=== PATIENT | female | born 1950 | race Caucasian/White ===

== ENCOUNTER 2017-01-01 13:02 | Emergency (ER) | payer OTHER ==
[2017-01-01] MEDS ORDERED: NS 0.9% 1000 ML* 1,000 ML IV ONE (13:04)
[2017-01-01] MEDS ORDERED: Dextrose 50% Syringe 50 ML* 25 GM/50 ML SYRINGE IV PUSH ONE (13:14)
[2017-01-01] MEDS ORDERED: Dextrose 50% Syringe 50 ML* 25 GM/50 ML SYRINGE ONE (13:15)
--- NOTE | 2017-01-01 13:29 | RAD ---
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 Comparison: No relevant prior exams available on the [facility] for comparison. Technique: Noncontrast CT vertex of skull through foramen magnum. Report: The sulci, ventricles, and basal cisterns are normal for age. Huber matter white matter differentiation is preserved without evidence for edema. No intra or extra axial hemorrhage, mass, or fluid collection detected. Unremarkable visualized orbital contents. Unremarkable calvarium and skull base. Unremarkable scalp. The visualized paranasal sinuses and mastoid air spaces are clear. IMPRESSION: Negative for intracranial hemorrhage or CT evidence for other acute intracranial process. Negative exam. Results discussed with Dr. Bear 01/01/2017 1:26 PM EDT
[2017-01-01 13:33] LABS: Hematocrit 34 % (35-47); Mean Corpuscular HGB Conc 33 g/dl (31-36); Mean Corpuscular Hemoglobin 27 pg (27-31); Mean Corpuscular Volume 81 fL (80-97); Mean Platelet Volume 7 um3 (7.4-10.4); Red Blood Count 4.16 10^6/ul (4.0-5.4); Red Cell Distribution Width 15 % (10.5-15)
[2017-01-01 13:45] LABS: Albumin 3.9 g/dL (3.2-5.2); BUN/Creatinine Ratio 20.8 (8-20); Calcium 9.2 mg/dL (8.6-10.3); EGFR African American 97.1 (>60); EGFR Non-African American 75.5 (>60); Globulin 3.2 g/dL (2-4); HDL Cholesterol 42.6 mg/dL; Potassium 3.7 mmol/L (3.5-5.0); Total Bilirubin 0.3 mg/dL (0.2-1.0); Total Protein 7.1 g/dL (6.4-8.9)
[2017-01-01] MEDS ORDERED: diPHENhydraMINE IV* 50 MG in NS 0.9% 50 ML* 50 ML IVPB ONE (13:57)
[2017-01-01] MEDS ORDERED: methylPREDNISolone 125 MG* 2 ML VIAL IV ONE (13:57)
[2017-01-01] MEDS ORDERED: Famotidine IV* 10 MG/ML 2 ML (20 mg) IV SLOW PU ONE (13:57)
[2017-01-01 13:59] LABS: Urine Bilirubin Negative (Negative); Urine Glucose Negative (Negative); Urine Nitrite Negative (Negative)
[2017-01-01] MEDS ORDERED: diPHENhydraMINE IV* 50 MG/ML 1 ml VIAL (BENADRYL) SLOW PUSH ONE (13:59)
[2017-01-01] MEDS ORDERED: D5W 1/2 NS KCl 20 Meq 1000 ML* 1,000 ML IV SCH (14:00)
--- NOTE | 2017-01-01 14:08 | RAD ---
Indication: Neurological changes. Code blackman. Comparison: No relevant prior exams available on the [facility] for comparison. Technique: Upright AP 1353 hours Report: Clear lungs and pleural spaces. Negative for pneumothorax. The heart, pulmonary vasculature, and mediastinal contours are unremarkable accounting for mild rightward rotation and portable technique. Unremarkable osseous structures and soft tissue contours. IMPRESSION: No evidence for acute intrathoracic disease.
[2017-01-01] MEDS ORDERED: Aspirin Low Dose CHEW TAB* 81 MG PO ONE (14:24)
[2017-01-01 16:25] VITALS: BP 148/69
--- NOTE | 2017-01-20 15:51 | ED ---
Rosalio Parker Thomas, scribed for Ever Bear MD on 01/01/17 at 1327 . Neurological HPI - HPI Summary HPI Summary: The patient is a 66 y/o F BIBA with complaints of neurological deficits that began approximately 10 minutes after being stung by a yellow jacket on her left neck at approximately 11:15 or 11:30 when she was riding in a car. She complains of left-sided weakness, dysphagia (described as inability to swallow ), L facial numbness, L facial paresthesia, and L hand weakness. She reports that her speech is slow, purposeful, and hard, but it is not slurred. Per her family, she never spoke garbled words or was aphasic, but as her symptoms developed she took longer to respond to questions. When EMS arrived, she did not have any speech deficits. She denies visual changes, tingling or numbness in her LLE, and confusion. Per EMS she was tachynpic. She also complains of throat swelling, difficulty to breathe, pruritus on her arm, and difficulty to swallow. There is no stridor, wheezing, or airway edema. In the ED, she reports that she can swallow and breathe better. She took Benadryl 50mg PO prior to arrival of the ambulance, although she never had an Epi-Pen. She has DM and wears a disposable insulin pump that dispenses three units per hour. She ate a large breakfast today at approximately 09:00. In the examination room, her blood glucose is 64 and it had dropped since it was measured by EMS prior to arrival, when it was in the 70s. She says at the time of examination that she would have typically had lunch by now. She also complains of nausea. She takes Victoza 1.8mg IM daily as well as metformin. PMHx: DM, hypothyroidism, peripheral neuropathy, HTN, joint issues with right foot. PSHx: C-sections (x3 ), hysterectomy, cholecystectomy. SHx: no smoking, occasional drinking. FHx: negative for CVA. Her last ATc is 6.8. She does not have a Hx of reactions to insect stings. She is from [place] and is visiting the area for her sons wedding that was yesterday. After 20 minutes of examination, her family is in the room and they corroborate her story. 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 Negative: Visual Changes, Loss of Consciousness, Pain, Nausea/Vomiting, Fever - Allergy/Home Medications Allergies/Adverse Reactions: Allergies Allergy/AdvReac Type Severity Reaction Status Date / Time No Known Allergies Allergy Verified 01/01/17 13:29 PMH/Surg Hx/FS Hx/Imm Hx Previously Healthy: No Endocrine/Hematology History: Reports: Hx Diabetes, Hx Thyroid Disease - hypothyroidism Cardiovascular History: Reports: Hx Hypertension Musculoskeletal History: Reports: Other Musculoskeletal History - Hx "joint issues in right foot" Neurological History: Reports: Other Neuro Impairments/Disorders - Hx peripheral neuropathy - Surgical History Surgery Procedure, Year, and Place: C-sections (x3), hysterectomy, cholecystectomy Infectious Disease History: Denies: Traveled Outside the [place] in Last 30 Days - Family History Known Family History: Negative: Other - NEG: CVA - Social History Lives: With Family Alcohol Use: Occasionally Hx Tobacco Use: No Smoking Status (MU): Never Smoked Tobacco Review of Systems Negative: Fever, Chills Negative: Erythema - eyes, Other - NEG: visual changes Positive: Other - POS: throat swelling, dysphagia; NEG: stridor Negative: Chest Pain Positive: Shortness Of Breath - "difficulty to breathe", Other - POS: tachypnic ; NEG: wheezing, airway edema. Negative: Cough Positive: Nausea. Negative: Abdominal Pain, Vomiting Negative: dysuria, hematuria Negative: Myalgia, Edema - leg Positive: Other - POS: pruritus on arm. Negative: Rash Neurological: Other - POS: L facial numbness, L facial paresthesia, slow purposeful speech (although no slurred speech); NEG: dizziness Positive: Weakness - L-sided and especially left hand All Other Systems Reviewed And Are Negative: Yes Physical Exam - Summary Physical Exam Summary: Constitutional: Well-developed, Well-nourished, Alert. (-) Distressed Skin: Warm, Dry HENT: Eyes: Conjunctiva normal Neck: Musculoskeletal ROM normal neck. (-) JVD, (-) Stridor, (-) Tracheal deviation Cardio: Rhythm regular, rate normal, Heart sounds normal; Intact distal pulses; The pedal pulses are 2+ and symmetric. Radial pulses are 2+ and symmetric. (-) Murmur Pulmonary/Chest wall: Effort normal. (-) Respiratory distress, (-) Wheezes, (-) Rales Abd: Soft. (-) Tenderness, ~(-) Distension, (-) Guarding, (-) Rebound Musculoskeletal: (-) Edema Lymph: (-) Cervical adenopathy Neuro: Alert, Oriented x3, Cranial nerves II-XII are grossly intact. (-) Dysmetria, (-) Nystagmus, (-) Ataxia by finger to nose testing, She has diminished sensation in the LUE and the left face. 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 She has global deconditioning of the lower extremities and is only able to pick her lower extremities up 7 inches when supine. There is no drift. She has weak plantar flexion of both feet on the right foot 5/5 and the left foot 4/5. Psych: Mood and affect Normal Triage Information Reviewed: Yes Vital Signs On Initial Exam: Temp 99.4, HR 101, RR 14, SaO2 98, BP 141/85. Vital Signs Reviewed: Yes Diagnostics - Vital Signs Temp 99.4, HR 101, RR 14, SaO2 98, BP 141/85. - Laboratory Result Diagrams: 01/01/17 13:21 01/01/17 13:21 Lab Statement: Any lab studies that have been ordered have been reviewed, and results considered in the medical decision making process. - CT CT Brain CT Interpretation: No Acute Changes - CT Brain shows Negative for intracranial hemorrhage or CT evidence for other acute intracranial process. Negative exam. ED Physician has reviewed this report and agrees. CT Interpretation Completed By: Radiologist - EKG 13:24 Cardiac Rate: NL - 93 BPM EKG Interpretation: Sinus rhythm. No STEMI. NIH Scale - NIH Scale Level of Consciousness: Alert/Keenly Responsive Ask Patient the Month and His/Her Age: Both Correct Ask Pt to Open/Close Eyes and Lining Caser/Release Non-Paretic Hand: Both Correctly Best Gaze (Only Horizontal Eye Movement): Normal Visual Field Testing: No Visual Loss Facial Paresis-Pt to Smile & Close Eyes or Grimace Symmetry: Normal/Symmetrical Motor Function - Right Arm: No Drift-Holds 10 Seconds Motor Function - Left Arm: No Drift-Holds 10 Seconds Motor Function - Right Leg: No Drift-Holds 10 Seconds Motor Function - Left Leg: No Drift-Holds 10 Seconds Limb Ataxia-Must be out of Proportion to Weakness Present: Absent Sensory (Use Pinprick to Test Arms/Legs/Trunk/Face): Pinprick Less on Affected Best Language (Describe Picture, Name Items): No Aphasia Dysarthria (Read Several Words): Normal Extinction and Inattention: No Abnormality Total Score: 1 Re-Evaluation - Re-Evaluation Second Eval Re-Evaluation Time: 14:31 Change: Improved Comment: The patient feels "so much better" and she says she feels back to normal. I will re-evaluated in an First Eval Re-Evaluation Time: 13:49 Change: Improved Comment: She is feeling better. I am going to try a PO challenge. Course/Dx - Course Assessment/Plan: The patient is a 66 y/o F BIBA with complaints of neurological deficits that began approximately 10 minutes after being stung by a yellow jacket on her left neck at approximately 11:15 or 11:30 when she was riding in a car. She complains of left-sided weakness, dysphagia (described as inability to swallow), L facial numbness, L facial paresthesia, and L hand weakness. She reports that her speech is slow, purposeful, and hard, but it is not slurred. Per her family, she never spoke garbled words or was aphasic, but as her symptoms developed she took longer to respond to questions. When EMS arrived, she did not have any speech deficits. She denies visual changes, tingling or numbness in her LLE, and confusion. Per EMS she was tachynpic. She also complains of throat swelling, difficulty to breathe, pruritus on her arm, and difficulty to swallow. There is no stridor, wheezing, or airway edema. In the ED , she reports that she can swallow and breathe better. She took Benadryl 50mg PO prior to arrival of the ambulance, although she never had an Epi-Pen. She has DM and wears a disposable insulin pump that dispenses three units per hour. She ate a large breakfast today at approximately 09:00. In the examination room , her blood glucose is 64 and it had dropped since it was measured by EMS prior to arrival, when it was in the 70s. She says at the time of examination that she would have typically had lunch by now. She also complains of nausea. She takes Victoza 1.8mg IM daily as well as metformin. PMHx: DM, hypothyroidism, peripheral neuropathy, HTN, joint issues with right foot. PSHx: C-sections (x3 ), hysterectomy, cholecystectomy. SHx: no smoking, occasional drinking. FHx: negative for CVA. Her last ATc is 6.8. She does not have a Hx of reactions to insect stings. She is from [place] and is visiting the area for her sons wedding that was yesterday. After 20 minutes of examination, her family is in the room and they corroborate her story. Bloodwork shows H&H of 11 and 44, glucose 269. UA shows specific gravity 1.005. EKG shows sinus rhythm with no STEMI. CT Brain shows Negative for intracranial hemorrhage or CT evidence for other acute intracranial process. Negative exam. ED Physician has reviewed this report and agrees. I consulted at 13:[address] Gibson, neurologist, who will do the tele-stroke consult. I explained to him the complicating factors of the bee sting on the affected side and the concomitant hypoglycemia. After the tele-stroke consult, he believes on purely clinical grounds that her symptoms are most likely related to the bee sting. He recommends observing the patient for a few more hours and if no deterioration then she can be discharged home with follow up by her primary care provider. There is no further indication for tPA beyond 4.5 hours. He did initially recommend an MRI today to rule out CVA, but understanding that MRI is not available, it is appropriate to discharge her after further observation. In the ED the patient was given ASA, Benadryl, Dextrose, and Pepcid. At 16:15, the patient feels much better. There is sensation in her upper extremities and lower extremities and they have symmetric motor function. She understands the small possibility of a stroke but that she would not be a tPA candidate. I did offer her observation overnight and an MRI in the AM but she declines this. She understands she should seek medical attention at the nearest emergency room if symptoms return. I did ask her not to bolus herself until she got to 190. Also, I instructed her to eat more frequently and to have more carbohydrate intake. The patient is diagnosed with bee sting reaction, paresthesia, decreased sensation, and hypoglycemia. She will be discharged home with follow up when she returns home. She was prescribed prednisone. She is stable. - Diagnoses Provider Diagnoses: Bee sting reaction, Paresthesia, Decreased sensation, Hypoglycemia - Physician Notifications Discussed Care Of Patient With: Roni Gibson Time Discussed With Above Provider: 13:57 Instructed by Provider To: Other - I consulted at 13:[address] Gibson, neurologist, who will do the tele-stroke consult. I explained to him the complicating factors of the bee sting on the affected side and the concomitant hypoglycemia. After the tele-stroke consult, he believes on purely clinical grounds that her symptoms are most likely related to the bee sting. He recommends observing the patient for a few more hours and if no deterioration then she can be discharged home with follow up by her primary care provider. There is no further indication for tPA beyond 4.5 hours. He did initially recommend an MRI today to rule out CVA, but understanding that MRI is not available, it is appropriate to discharge her after further observation. Discharge - Discharge Plan Condition: Stable Disposition: HOME Prescriptions: predniSONE TAB* [Deltasone TAB*] 10 mg PO DAILY #4 tab Patient Education Materials: Paresthesia (ED), General Allergic Reaction (ED), Hypoglycemia in a Person with Diabetes (ED) Referrals: [facility] [place]] - 7 Days Non Staff,Doctor [Primary Care Provider] - Additional Instructions: Follow up with your primary care provider when you get home. Go to the closest emergency room for any new or worsening symptoms. The documentation as recorded by the Rosalio wayne Thomas accurately reflects the service I personally performed and the decisions made by me, Ever Bear MD.
== END 2017-01-01 16:28 | disposition home or self-care (01) ==
LOC: ED 13:02
DX: T63.441A Toxic effect of venom of bees, accidental (unintentional), initial encounter (principal); R20.2 Paresthesia of skin; Y92.9 Unspecified place or not applicable; E16.2 Hypoglycemia, unspecified
CPT/HCPCS: 36415; 70450; 71010; 80053; 80061; 81003; 83605; 84484; 85025; 85610; 85730; 86850; 86900; 86901; 93005; 96360; 96374; 99284; A9270-GY; J1200; J2930